=== PATIENT | female | born 1960 | race Caucasian/White ===

== ENCOUNTER 2016-07-22 19:08 | Emergency (ER) | payer OTHER ==
[2016-07-22 19:20] VITALS: BP 114/71
--- NOTE | 2016-07-22 20:20 | ERNOTE ---
Time Seen by Provider: 07/22/16 20:00 Stated Complaint: URI Presenting Symptoms:: cough, runny nose Source: patient Immunizations: IMMUNIZATION HX Immunizations Up to Date Yes History of Influenza Vaccine Yes Hx Pneumococcal Vaccination No Allergies/Adverse Reactions: Allergies No Known Allergies Allergy (Verified 07/22/16 19:20) Home Medications: HOME MEDICATIONS Albuterol Sulfate [Ventolin Hfa] 1 - 2 puff IH Q4H PRN #1 inhaler 03/26/16 [ Last Taken Unknown] Amoxicillin Trihydrate [Amoxil] 500 mg PO TID 07/22/16 [Last Taken 07/21/16] Benzonatate [Tessalon Perle] 100 mg PO TID PRN #30 capsule 07/22/16 [Last Taken Unknown] - History of Present Ilness Narrative: Pt had onset of headache and sore throat7-8 days ago. Was seen in an acute care clinic and dx with Strep and given amoxil 500 TID. She continues to have cough and is not feeling any better Timing: constant Severity: moderate Modifying Factors - Improves: Reports: rest Modifying Factors - Worsens: Reports: coughing, lying down Associated Symptoms: Reports: chest pain/soreness - left lower ribs Review of Systems - Review of Systems Constitutional: Present: chills, fatigue, malaise. Absent: fever EYE: Present: no symptoms reported ENT: Present: See HPI, nasal drainage, sore throat Respiratory: Present: See HPI Cardiology: Present: no symptoms reported Gastrointestinal/Abdominal: Present: no symptoms reported Genitourinary: Present: no symptoms reported Musculoskeletal: Present: muscle pain - left ribs Skin: Present: no symptoms reported Neurological: Present: no symptoms reported Endocrine: Present: no symptoms reported Hematologic/Lymphatic: Present: no symptoms reported Psych: Present: no symptoms reported - Patient's Past Medical History Patient History - Medical: No pertinent hx Patient History - Cardiac/Respiratory: Hyperlipidemia Patient History - Cancer: No Hx of Cancer Patient History - Surgical Procedures: Tubal Ligation, Other Patient History - Other: None LMP (females 10-50): Menopausal - Social History Living Situations: home Abuse History: No History of abuse Psych History: No pertinent hx Smoking Status: Current every day smoker Alcohol Use: none Drug Use: none - Immunizations Immunizations Up to Date: Yes Hx Pneumococcal Vaccination: No History of Influenza Vaccine: Yes Physical Exam - Physical Exam General Appearance: Present: wd/wn, alert, no apparent distress Eye Exam: Normal inspection: bilateral, PERRL: bilateral Ears, Nose, Throat: Present: nasal congestion - without erythema, with clear d/c , pharyngeal erythema - Streaking from PND Neck: Present: normal inspection, nontender Respiratory: Present: no respiratory distress, normal breath sounds, no accessory muscle use, chest nontender, lungs clear Cardiovascular/Chest: Present: regular rate, rhythm, no murmur, normal peripheral pulses Back Exam: Present: normal inspection, normal range of motion Extremity Exam: Present: normal inspection, normal range of motion Neurological Exam: Present: alert, oriented, normal mood/affect, no motor/ sensory deficits Skin Exam: Present: normal color, warm/dry Lymphatic Exam: Present: no adenopathy ED Progress - Vital Signs Vital Signs: Vital Signs 07/22/16 19:11 Temperature 36.4 C L Pulse Rate 95 Respiratory 18 Rate Blood Pressure 114/71 O2 Sat by Pulse 96 Oximetry - Progress/Reassessment Chief Complaint: Upper Respiratory Symptoms Departure - Departure Clinical Impression: Upper respiratory infection Qualifiers: URI type: acute nasopharyngitis (common cold) Qualified Code(s): J00 - Acute nasopharyngitis [common cold] Disposition: Home self-care Condition: Good Instructions: Upper Respiratory Infection, Adult, [id number] Additional Instructions: Buy Mucinex-D or generic equivalent and take one twice a day. keep a humidifier close whenever possible. Drink plenty of fluids Referrals: Fanta Dyson ARNP [Primary Care Provider] - Prescriptions: Benzonatate [Tessalon Perle] 100 mg PO TID PRN #30 capsule PRN Reason: Cough
--- OUTSIDE RECORDS SUMMARY | 2016-07-22 20:21 | XMS REPORT | Continuity of Care Document ---
:1960 Author Organization [facility] ([facility]) Address [place] [address] Phone [phone] Care Team Providers Name Role Phone Provider, No-Primary Care Primary Care Provider Unavailable Source Comments This disclosure is being made pursuant to the Care Everywhere program, applicable federal and state laws, and may not contain all informaitonavailable regarding this patient.[facility] ([facility]) Active Allergies and Adverse Reactions Not on File Current Medications Not on file Active Problems Not on file Social History Tobacco Use Types Packs/Day Years Used Date Never Assessed Plan of Care Health Maintenance Due Date Last Done Comments HCV Screening 1960 Hepatitis B Vaccine (1 of 3 - Primary Series) 1960 Tdap Vaccine 1971 Lipid Disorder Screening 1978 MMR Vaccine 1978 Td Vaccine 1978 Cervical Cancer Screening 1990 Mammogram 2000 Colonoscopy 2010 Influenza Vaccine: Seasonal (#1) 01/08/2016 Results from Last 3 Months Not on file
--- OUTSIDE RECORDS SUMMARY | 2016-07-22 20:21 | XMS REPORT | Continuity of Care Document ---
:1960 Author Organization [employer] [place] [address] Care Team Providers Name Role Phone Unavailable Primary Care Provider Unavailable Source Comments This disclosure is being made pursuant to the [employer] program and maynot contain all information available regarding this patient.[employer] Active Allergies and Adverse Reactions Not on File Current Medications Be aware that medications may not be up to date as of this document. Alwaysverify current medications with the patient. Not on file Active Problems Not on file Social History Tobacco Use Types Packs/Day Years Used Date Never Assessed Plan of Care Health Maintenance Due Date Last Done Comments Retired-Pertussis Vaccine Adult 1979 Retired-Tetanus Vaccine Adult 1979 Pap Smear 1981 Mammogram 2000 Colonoscopy 2010 Well Adult Visit 2010 Retired-INFLUENZA VACCINE 02/07/2015 Results from Last 3 Months Not on file
== END 2016-07-22 20:20 | disposition home or self-care (01) ==
LOC: ER 19:08
DX: J00 Acute nasopharyngitis [common cold] (principal); F17.210 Nicotine dependence, cigarettes, uncomplicated

== ENCOUNTER 2017-07-30 23:30 | Emergency (ER) | payer OTHER ==
[2017-07-31] MEDS ORDERED: KETOROLAC TROMETHAMINE 60 MG/2 ML VIAL IM ONE ×2 (00:04→00:05)
--- NOTE | 2017-07-31 00:25 | ERNOTE ---
Medical Problem HPI - General Chief Complaint: General Assessment Time Seen by Provider: 07/31/17 00:22 Source: patient, family Exam Limitations: no limitations - Immun/Allergies/Home Medications Immunizations: IMMUNIZATION HX Immunizations Up to Date Yes History of Influenza Vaccine Yes Hx Pneumococcal Vaccination No Allergies/Adverse Reactions: Allergies No Known Allergies Allergy (Verified 07/30/17 23:52) Home Medications: HOME MEDICATIONS Rosuvastatin Calcium 10 mg PO DAILY 07/30/17 [Last Taken Unknown] Cyclobenzaprine HCl [Flexeril] 10 mg PO TID PRN #30 tab 07/31/17 [Last Taken Unknown] Nabumetone 750 mg PO BID #20 tablet 07/31/17 [Last Taken Unknown] - History of Present History Narrative: 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 States she has had to lift on this patient more often lately and is feeling more and more discomfort. Timing: getting worse Severity: moderate Review of Systems - Review of Systems Constitutional: Absent: recent illness Respiratory: Present: other - some increased pain with inspiration initially but not as much now. Absent: shortness of breath Cardiology: Present: See HPI. Absent: palpitations Gastrointestinal/Abdominal: Absent: nausea, vomiting Musculoskeletal: Present: muscle pain. Absent: neck pain Neurological: Absent: numbness, tingling - Patient's Past Medical History Patient History - Medical: No pertinent hx Patient History - Cardiac/Respiratory: Hyperlipidemia Patient History - Cancer: No Hx of Cancer Patient History - Surgical Procedures: Tubal Ligation Patient History - Other: None - Social History Living Situations: home Abuse History: No History of abuse Psych History: No pertinent hx Smoking Status: Current every day smoker Patient requests Smoking Cessation Consult: No Initiate information on Smoking Cessation: No Alcohol Use: none Drug Use: none - Immunizations Immunizations Up to Date: Yes Hx Pneumococcal Vaccination: No History of Influenza Vaccine: Yes Physical Exam - Physical Exam General Appearance: Present: wd/wn, alert, no apparent distress Head Exam: Present: normal inspection, no evidence of injury Respiratory: Present: no respiratory distress, no accessory muscle use Cardiovascular/Chest: Present: chest tenderness - left lateral ribs approx ribs 6-7 , right lateral ribs approx ribs 5-6 Back Exam: Present: normal inspection, normal range of motion, no vertebral tenderness Extremity Exam: Present: normal inspection, normal range of motion Neurological Exam: Present: alert, oriented, normal mood/affect, no motor/ sensory deficits Skin Exam: Present: normal color, warm/dry ED Progress - Vital Signs Vital Signs: Vital Signs 07/30/17 23:48 Temperature 36.5 C Pulse Rate 90 Respiratory 20 Rate Blood Pressure 157/94 O2 Sat by Pulse 97 Oximetry - X-Ray X-Ray #1 X-Ray: ribs Interpretation: Interp. by me X-ray Comments: bilateral ribs: no fracture noted. Visible lung schaefer appear normal. X-Ray #2 X-Ray: wrist - right Interpretation: Interp. by me X-ray Comments: no fracture or dislocation noted. - Progress/Reassessment Chief Complaint: General Assessment Departure Clinical Impression: Thoracic myofascial strain Qualifiers: Encounter type: initial encounter Qualified Code(s): S29.019A - Strain of muscle and tendon of unspecified wall of thorax, initial encounter - Departure Disposition: Home Follow Up Needed Condition: Good Instructions: Thoracic Strain, [id number], Heat Therapy Additional Instructions: Use heat 3-4 times a day for 10-15 minutes at a time. Take prescription medications as prescribed. Referrals: Albertina Cary ARNP [Primary Care Provider] - Prescriptions: Cyclobenzaprine HCl [Flexeril] 10 mg PO TID PRN #30 tab PRN Reason: MUSCLE SPASMS Nabumetone 750 mg PO BID #20 tablet
[2017-07-31 00:41] VITALS: BP 122/84
[2017-07-31] MEDS ORDERED: CYCLOBENZAPRINE HCL 10 MG TABLET PO ONE (01:09)
[2017-07-31] MEDS ORDERED: CYCLOBENZAPRINE HCL 10 MG TABLET ONE (01:10)
== END 2017-07-31 01:16 | disposition home or self-care (01) ==
LOC: ER 23:30
DX: S29.019A Strain of muscle and tendon of unspecified wall of thorax, initial encounter (principal); E78.5 Hyperlipidemia, unspecified; F17.210 Nicotine dependence, cigarettes, uncomplicated; W50.0XXA Accidental hit or strike by another person, initial encounter; Y99.0 Civilian activity done for income or pay